=== PATIENT | female | born 1955 | race Two or more races ===

== ENCOUNTER 2022-08-20 10:33 | Inpatient (IN) | payer SELFPAY ==
[~2022-08-20] VITALS: Ht 157.5 cm; Wt 56.0 kg
[2022-08-20] MEDS ORDERED: CLINDAMYCIN 300MG IV 50 ML IV ONE (11:45)
[2022-08-20] MEDS ORDERED: PIPERACILLIN-TAZOB 3.375GM 100 ML IV ONE (11:45)
[2022-08-20 12:03] LABS: Basophils # (auto) 0.1 10 ^3/uL (0-0.2); Basophils % (auto) 0.6 % (0.0-2.0); Eosinophils # (auto) 0 10 ^3/uL (0-0.8); Eosinophils % (auto) 0.3 % (0.0-7.0); Hematocrit 38.7 % (36.0-46.0); Hemoglobin 13.7 g/dL (12.2-16.2); Lymphocytes # (auto) 1.8 10 ^3/uL (0.4-5.4); Lymphocytes % (auto) 14.5 % (10.0-50.0); Mean Corpuscular Hemoglobin 31.8 pg (28.0-32.0); Mean Corpuscular Hgb Conc. 35.5 g/dL (32.0-36.0); Mean Corpuscular Volume 89.5 fL (80.0-100.0); Monocytes # (auto) 0.9 10 ^3/uL (0-1.3); Monocytes % (auto) 6.9 % (0.0-12.0); Neutrophils # (auto) 9.6 10 ^3/uL (1.6-8.6); Neutrophils % (auto) 77.7 % (37.0-80.0); Red Blood Cells 4.32 10^6/uL (4.0-5.20); Red Cell Distribution Width 12.5 % (11.8-14.3); White Blood Cell 12.3 10^3/uL (4.4-10.8)
[2022-08-20 12:20] LABS: Calcium 8.8 mg/dL (8.5-10.1); INR 0.97 (0.9-1.15); Partial Thromboplastin Time 28.3 sec (24.6-33.4); Potassium 4.3 mmol/L (3.5-5.1)
[2022-08-20 12:23] LABS: BUN/Creatinine Ratio 26.9 (10.0-20.0); Bilirubin, Total 0.7 mg/dL (0.2-1.0)
[2022-08-20] MEDS ORDERED: DEXTROSE (50%) 50ML SYRG IV PRN (14:00)
[2022-08-20] MEDS ORDERED: PANTOPRAZOLE 40 MG/10 ML VIAL INJ IV ONE (14:00)
[2022-08-20] MEDS ORDERED: IBUP400T23 PO (14:00)
[2022-08-20] MEDS ORDERED: ACETAMINOPHEN 325 MG TAB PO PRN (14:00)
[2022-08-20] MEDS ORDERED: CLINDAMYCIN 600MG IV 50 ML IV SCH (14:00)
[2022-08-20] MEDS: SODIUM CHLORIDE 0.9% 1,000 ML IV SCH (14:04)
[2022-08-20] MEDS: CLINDAMYCIN 300MG IV 100 ML IV SCH ×2 (15:49→23:00)
[2022-08-20] MEDS: ACCU-CHEK COMFORT CURVE STRIP VI SCH ×2 (17:15→22:00)
[2022-08-20] MEDS: InsuLIN REG 1unit/0.01ml Soln (100units/ml) SC SCH ×2 (17:20→23:00)
[2022-08-20] MEDS: PIPERACILLIN-TAZOB 3.375GM 100 ML IV SCH (18:09)
[2022-08-20] MEDS: ASCORBIC ACID 500 MG TAB PO SCH (23:00)
[2022-08-21] MEDS: PIPERACILLIN-TAZOB 3.375GM 100 ML IV SCH ×5 (01:05→23:54)
[2022-08-21] MEDS: SODIUM CHLORIDE 0.9% 1,000 ML IV SCH ×2 (03:20→19:17)
[2022-08-21] MEDS: ACCU-CHEK COMFORT CURVE STRIP VI SCH ×4 (06:14→21:57)
[2022-08-21] MEDS: CLINDAMYCIN 300MG IV 100 ML IV SCH (06:25)
[2022-08-21] MEDS: InsuLIN REG 1unit/0.01ml Soln (100units/ml) SC SCH ×4 (06:53→22:03)
[2022-08-21 07:19] LABS: Albumin 2.5 g/dL (3.4-5.0); Potassium 3.5 mmol/L (3.5-5.1)
[2022-08-21 07:23] LABS: BUN/Creatinine Ratio 14.9 (10.0-20.0); Bilirubin, Total 0.6 mg/dL (0.2-1.0); Calcium 8.4 mg/dL (8.5-10.1); Total Protein 6.9 g/dL (6.4-8.2)
[2022-08-21 08:01] LABS: Basophils # (auto) 0.1 10 ^3/uL (0-0.2); Basophils % (auto) 1.1 % (0.0-2.0); Eosinophils # (auto) 0.1 10 ^3/uL (0-0.8); Eosinophils % (auto) 1.3 % (0.0-7.0); Hematocrit 38.4 % (36.0-46.0); Hemoglobin 13.3 g/dL (12.2-16.2); Lymphocytes # (auto) 1.9 10 ^3/uL (0.4-5.4); Mean Corpuscular Hemoglobin 31.5 pg (28.0-32.0); Mean Corpuscular Hgb Conc. 34.6 g/dL (32.0-36.0); Mean Corpuscular Volume 90.9 fL (80.0-100.0); Monocytes # (auto) 0.9 10 ^3/uL (0-1.3); Monocytes % (auto) 8.4 % (0.0-12.0); Neutrophils # (auto) 7.6 10 ^3/uL (1.6-8.6); Neutrophils % (auto) 71.2 % (37.0-80.0); Nucleated Red Blood Cells % 0.1 %; Red Blood Cells 4.23 10^6/uL (4.0-5.20); Red Cell Distribution Width 12.3 % (11.8-14.3); White Blood Cell 10.7 10^3/uL (4.4-10.8)
[2022-08-21] MEDS: ASCORBIC ACID 500 MG TAB PO SCH ×2 (10:53→22:00)
[2022-08-21] MEDS: ENOXAPARIN SOD 40 MG/0.4 ML SYRINGE SC SCH (10:53)
[2022-08-21] MEDS: PANTOPRAZOLE 40 MG/10 ML VIAL INJ IV SCH (10:53)
[2022-08-21] MEDS: MULTIPLE VITAMIN TAB PO SCH (10:53)
[2022-08-21] MEDS: ZINC SULFATE 220mg CAP or TAB PO SCH (10:54)
[2022-08-21 17:20] VITALS: BP 121/68
[2022-08-21 17:31] VITALS: BP 121/68
[2022-08-21] MEDS: CLINDAMYCIN HCL 150 MG CAP PO SCH ×2 (18:56→23:54)
[2022-08-21 20:00] VITALS: BP 121/68
[2022-08-21 21:44] VITALS: BP 121/64
[2022-08-22 05:04] VITALS: BP 146/62
[2022-08-22] MEDS: CLINDAMYCIN HCL 150 MG CAP PO SCH ×3 (05:35→18:23)
[2022-08-22] MEDS: PIPERACILLIN-TAZOB 3.375GM 100 ML IV SCH ×3 (05:35→18:23)
[2022-08-22] MEDS: SODIUM CHLORIDE 0.9% 1,000 ML IV SCH ×2 (05:36→21:51)
[2022-08-22] MEDS: InsuLIN REG 1unit/0.01ml Soln (100units/ml) SC SCH ×4 (06:40→21:57)
[2022-08-22] MEDS: ACCU-CHEK COMFORT CURVE STRIP VI SCH ×4 (06:42→21:51)
[2022-08-22 07:56] LABS: Urine Bacteria NONE SEEN /hpf (None Seen); Urine Blood Negative /uL (Negative); Urine Budding Yeast FEW /hpf (None Seen); Urine Specific Gravity 1.018 (1.001-1.035); Urine WBC 12 /hpf (0 - 5)
[2022-08-22 08:30] VITALS: BP 104/60
[2022-08-22] MEDS: PANTOPRAZOLE 40 MG/10 ML VIAL INJ IV SCH (09:53)
[2022-08-22] MEDS: ENOXAPARIN SOD 40 MG/0.4 ML SYRINGE SC SCH (09:54)
[2022-08-22] MEDS: MULTIPLE VITAMIN TAB PO SCH (09:54)
[2022-08-22] MEDS: ZINC SULFATE 220mg CAP or TAB PO SCH (09:54)
[2022-08-22] MEDS: ASCORBIC ACID 500 MG TAB PO SCH ×2 (09:55→21:48)
[2022-08-22 12:30] VITALS: BP 153/69
[2022-08-22 16:38] VITALS: BP 113/54
[2022-08-22 20:00] VITALS: BP 129/65
[2022-08-22 22:05] VITALS: BP 116/67
[2022-08-23] VITALS (7 sets, daily range): BP systolic 125–165; BP diastolic 61–84
[2022-08-23] MEDS: CLINDAMYCIN HCL 150 MG CAP PO SCH ×4 (00:58→17:48)
[2022-08-23] MEDS: PIPERACILLIN-TAZOB 3.375GM 100 ML IV SCH ×4 (00:59→17:47)
[2022-08-23] MEDS: ACCU-CHEK COMFORT CURVE STRIP VI SCH ×4 (06:25→21:04)
[2022-08-23] MEDS: InsuLIN REG 1unit/0.01ml Soln (100units/ml) SC SCH ×4 (06:29→21:06)
[2022-08-23] MEDS: ZINC SULFATE 220mg CAP or TAB PO SCH (10:30)
[2022-08-23] MEDS: SODIUM CHLORIDE 0.9% 1,000 ML IV SCH ×2 (10:31→21:07)
[2022-08-23] MEDS: ASCORBIC ACID 500 MG TAB PO SCH ×2 (10:31→21:07)
[2022-08-23] MEDS: ENOXAPARIN SOD 40 MG/0.4 ML SYRINGE SC SCH (10:31)
[2022-08-23] MEDS: PANTOPRAZOLE 40 MG/10 ML VIAL INJ IV SCH (10:31)
[2022-08-23] MEDS: MULTIPLE VITAMIN TAB PO SCH (10:31)
[2022-08-23] MEDS ORDERED: LIDOCAINE W/ EPINEPHRINE 2% INJ 20ML VIAL IJ ONE (11:15)
[2022-08-23] MEDS ORDERED: LIDOCAINE 1% HCL (LOCAL ANESTH.) INJ 20ML MDV ID ONE (11:45)
[2022-08-23] MEDS ORDERED: hydrALAZINE HCL 20 MG/ML VL IV PRN (11:45)
[2022-08-23] MEDS: DAKINS HALF STR 0.25% (NaHypochlorite) 473 ML TOPICAL SOL TOP SCH (12:52)
[2022-08-23] MEDS ORDERED: DEXTROSE (50%) 50ML SYRG IV PRN (13:00)
[2022-08-23] MEDS: MORPHINE SULFATE INJ 2 MG/ml SYRG IV PRN ×2 (17:47→21:56)
[2022-08-24] MEDS: PIPERACILLIN-TAZOB 3.375GM 100 ML IV SCH ×4 (00:44→18:00)
[2022-08-24] MEDS: CLINDAMYCIN HCL 150 MG CAP PO SCH ×4 (00:46→17:53)
[2022-08-24] MEDS: MORPHINE SULFATE INJ 2 MG/ml SYRG IV PRN ×3 (03:35→17:54)
[2022-08-24 05:00] VITALS: BP 118/61
[2022-08-24 05:19] LABS: Basophils # (auto) 0.1 10 ^3/uL (0-0.2); Basophils % (auto) 0.6 % (0.0-2.0); Eosinophils # (auto) 0.2 10 ^3/uL (0-0.8); Eosinophils % (auto) 1.8 % (0.0-7.0); Hemoglobin 12.1 g/dL (12.2-16.2); Lymphocytes # (auto) 2.1 10 ^3/uL (0.4-5.4); Lymphocytes % (auto) 18.1 % (10.0-50.0); Mean Corpuscular Hemoglobin 31.5 pg (28.0-32.0); Mean Corpuscular Hgb Conc. 34.6 g/dL (32.0-36.0); Monocytes # (auto) 1.3 10 ^3/uL (0-1.3); Neutrophils % (auto) 68.5 % (37.0-80.0); Nucleated Red Blood Cells % 0.1 %; Red Blood Cells 3.85 10^6/uL (4.0-5.20); Red Cell Distribution Width 12.5 % (11.8-14.3); White Blood Cell 11.6 10^3/uL (4.4-10.8)
[2022-08-24 05:40] LABS: Calcium 8.1 mg/dL (8.5-10.1); Potassium 4.2 mmol/L (3.5-5.1)
[2022-08-24 05:42] LABS: BUN/Creatinine Ratio 35.7 (10.0-20.0)
[2022-08-24] MEDS: ACCU-CHEK COMFORT CURVE STRIP VI SCH ×4 (06:48→22:12)
[2022-08-24] MEDS: InsuLIN REG 1unit/0.01ml Soln (100units/ml) SC SCH ×4 (06:49→22:17)
[2022-08-24 09:00] VITALS: BP 129/67
[2022-08-24] MEDS: INSULIN LANTUS (GLARGINE) 1 /0.01ml (100units/ml) SC SCH (09:45)
[2022-08-24] MEDS: PANTOPRAZOLE 40 MG/10 ML VIAL INJ IV SCH (10:10)
[2022-08-24] MEDS: ASCORBIC ACID 500 MG TAB PO SCH ×2 (10:10→22:18)
[2022-08-24] MEDS: ZINC SULFATE 220mg CAP or TAB PO SCH (10:10)
[2022-08-24] MEDS: MULTIPLE VITAMIN TAB PO SCH (10:10)
[2022-08-24] MEDS: DAKINS HALF STR 0.25% (NaHypochlorite) 473 ML TOPICAL SOL TOP SCH (10:11)
[2022-08-24] MEDS: ENOXAPARIN SOD 40 MG/0.4 ML SYRINGE SC SCH (10:11)
[2022-08-24 13:00] VITALS: BP 173/83
[2022-08-24] MEDS: SODIUM CHLORIDE 0.9% 1,000 ML IV SCH (13:13)
[2022-08-24 17:00] VITALS: BP 101/56
[2022-08-24 19:01] VITALS: BP 103/57
[2022-08-24 22:00] VITALS: BP 106/54
[2022-08-24] MEDS: HYDROcodone-ACET 5/325MG TAB PO PRN (22:22)
[2022-08-25] MEDS: PIPERACILLIN-TAZOB 3.375GM 100 ML IV SCH ×4 (00:01→17:42)
[2022-08-25] MEDS: CLINDAMYCIN HCL 150 MG CAP PO SCH ×4 (00:01→17:42)
[2022-08-25] MEDS: SODIUM CHLORIDE 0.9% 1,000 ML IV SCH ×2 (00:40→14:00)
[2022-08-25 05:00] VITALS: BP 148/73
[2022-08-25] MEDS: ACCU-CHEK COMFORT CURVE STRIP VI SCH ×4 (06:23→21:46)
[2022-08-25] MEDS: InsuLIN REG 1unit/0.01ml Soln (100units/ml) SC SCH ×4 (06:23→21:48)
[2022-08-25] MEDS: MORPHINE SULFATE INJ 2 MG/ml SYRG IV PRN ×3 (06:30→18:25)
[2022-08-25 08:30] VITALS: BP 116/63
[2022-08-25] MEDS: DAKINS HALF STR 0.25% (NaHypochlorite) 473 ML TOPICAL SOL TOP SCH (10:00)
[2022-08-25] MEDS: ASCORBIC ACID 500 MG TAB PO SCH ×2 (10:53→21:46)
[2022-08-25] MEDS: MULTIPLE VITAMIN TAB PO SCH (10:53)
[2022-08-25] MEDS: PANTOPRAZOLE 40 MG/10 ML VIAL INJ IV SCH (10:53)
[2022-08-25] MEDS: ZINC SULFATE 220mg CAP or TAB PO SCH (10:53)
[2022-08-25] MEDS: ENOXAPARIN SOD 40 MG/0.4 ML SYRINGE SC SCH (10:53)
[2022-08-25] MEDS: INSULIN LANTUS (GLARGINE) 1 /0.01ml (100units/ml) SC SCH (10:57)
[2022-08-25 12:30] VITALS: BP 114/67
[2022-08-25 16:51] VITALS: BP 92/48
[2022-08-25 22:00] VITALS: BP 109/59
[2022-08-26] VITALS (7 sets, daily range): BP systolic 106–134; BP diastolic 54–69
[2022-08-26] MEDS: PIPERACILLIN-TAZOB 3.375GM 100 ML IV SCH ×4 (00:07→17:55)
[2022-08-26] MEDS: CLINDAMYCIN HCL 150 MG CAP PO SCH ×4 (00:07→17:55)
[2022-08-26] MEDS: MORPHINE SULFATE INJ 2 MG/ml SYRG IV PRN ×3 (00:08→21:55)
[2022-08-26] MEDS: SODIUM CHLORIDE 0.9% 1,000 ML IV SCH (03:20)
[2022-08-26] MEDS: ACCU-CHEK COMFORT CURVE STRIP VI SCH ×4 (06:32→23:03)
[2022-08-26] MEDS: InsuLIN REG 1unit/0.01ml Soln (100units/ml) SC SCH ×4 (06:35→22:09)
[2022-08-26] MEDS: ZINC SULFATE 220mg CAP or TAB PO SCH (08:56)
[2022-08-26] MEDS: PANTOPRAZOLE 40 MG/10 ML VIAL INJ IV SCH (08:57)
[2022-08-26] MEDS: MULTIPLE VITAMIN TAB PO SCH (08:57)
[2022-08-26] MEDS: ENOXAPARIN SOD 40 MG/0.4 ML SYRINGE SC SCH (08:57)
[2022-08-26] MEDS: ASCORBIC ACID 500 MG TAB PO SCH ×2 (08:57→21:53)
[2022-08-26] MEDS: DAKINS HALF STR 0.25% (NaHypochlorite) 473 ML TOPICAL SOL TOP SCH (08:58)
[2022-08-26] MEDS: INSULIN LANTUS (GLARGINE) 1 /0.01ml (100units/ml) SC SCH (09:07)
[2022-08-26] MEDS ORDERED: INSULIN LANTUS (GLARGINE) 1 /0.01ml (100units/ml) SC ONE (11:45)
[2022-08-26] MEDS: Juven Fruit Punch Powder PACKET 28.8gm PO SCH (17:59)
[2022-08-27] MEDS: CLINDAMYCIN HCL 150 MG CAP PO SCH ×2 (00:59→06:22)
[2022-08-27] MEDS: PIPERACILLIN-TAZOB 3.375GM 100 ML IV SCH ×4 (02:07→12:23)
[2022-08-27 05:00] VITALS: BP 136/71
[2022-08-27 06:14] LABS: Hemoglobin 12.1 g/dL (12.2-16.2); Mean Corpuscular Hemoglobin 31.4 pg (28.0-32.0); Red Cell Distribution Width 12.4 % (11.8-14.3)
[2022-08-27 06:18] LABS: Hematocrit 35.1 % (36.0-46.0); Mean Corpuscular Hgb Conc. 34.6 g/dL (32.0-36.0); Mean Corpuscular Volume 90.9 fL (80.0-100.0); Red Blood Cells 3.86 10^6/uL (4.0-5.20); White Blood Cell 9.5 10^3/uL (4.4-10.8)
[2022-08-27 06:27] LABS: Basophils % (manual) 0 (0.0-2.0); Blast Cells 0; Metamyelocytes % 0; Myelocytes % 0; Promyelocytes % 0
[2022-08-27 06:34] LABS: BUN/Creatinine Ratio 23.7 (10.0-20.0); Calcium 8.8 mg/dL (8.5-10.1); Potassium 3.9 mmol/L (3.5-5.1)
[2022-08-27] MEDS: ACCU-CHEK COMFORT CURVE STRIP VI SCH ×3 (07:02→17:04)
[2022-08-27] MEDS: InsuLIN REG 1unit/0.01ml Soln (100units/ml) SC SCH ×3 (07:03→17:00)
[2022-08-27 07:28] LABS: Band Neutrophils % (manual) 2; Eosinophils % (manual) 2 (0-7); Lymphocytes % (manual) 30 (10.0-50.0); Monocytes % (manual) 2 (0-12); Reactive Lymphocytes 3
[2022-08-27 08:00] VITALS: BP 124/68
[2022-08-27] MEDS: Juven Fruit Punch Powder PACKET 28.8gm PO SCH (08:00)
[2022-08-27] MEDS: MULTIPLE VITAMIN TAB PO SCH (08:51)
[2022-08-27] MEDS: PANTOPRAZOLE 40 MG/10 ML VIAL INJ IV SCH (08:51)
[2022-08-27] MEDS: ENOXAPARIN SOD 40 MG/0.4 ML SYRINGE SC SCH (08:51)
[2022-08-27] MEDS: ASCORBIC ACID 500 MG TAB PO SCH (08:51)
[2022-08-27] MEDS: ZINC SULFATE 220mg CAP or TAB PO SCH (08:52)
[2022-08-27 09:00] VITALS: BP 121/68
[2022-08-27] MEDS: DAKINS HALF STR 0.25% (NaHypochlorite) 473 ML TOPICAL SOL TOP SCH (09:06)
[2022-08-27] MEDS ORDERED: INSULIN LANTUS (GLARGINE) 1 /0.01ml (100units/ml) SC SCH (10:00)
[2022-08-27] MEDS: MORPHINE SULFATE INJ 2 MG/ml SYRG IV PRN (10:51)
[2022-08-27 13:00] VITALS: BP 135/73
[2022-08-27] MEDS ORDERED: GAUZMIS54 XX (14:06)
[2022-08-27] MEDS ORDERED: CEPH-510 PO (14:06)
[2022-08-27] MEDS ORDERED: HYDR-4902 PO (14:06)
[2022-08-27] MEDS ORDERED: GAUZMIS XX (14:06)
[2022-08-27] MEDS: HYDROcodone-ACET 5/325MG TAB PO PRN (16:32)
[2022-08-27 17:15] VITALS: BP 120/55
== END 2022-08-27 16:30 | disposition home or self-care (01) | DRG 872 ==
LOC: ER 10:33 → OVERFLOW 13:58 → EAST 08-21 17:06
PROVIDERS: ADMIT Nurse Practitioner Family; ATTEND Nurse Practitioner Acute Care
DX: A41.9 Sepsis, unspecified organism (principal); L03.116 Cellulitis of left lower limb; E46 Unspecified protein-calorie malnutrition; L02.612 Cutaneous abscess of left foot; E11.621 Type 2 diabetes mellitus with foot ulcer; L97.509 Non-pressure chronic ulcer of other part of unspecified foot with unspecified severity; E11.40 Type 2 diabetes mellitus with diabetic neuropathy, unspecified; E11.65 Type 2 diabetes mellitus with hyperglycemia; Z20.822 Contact with and (suspected) exposure to COVID-19; Z79.84 Long term (current) use of oral hypoglycemic drugs; Z68.21 Body mass index [BMI] 21.0-21.9, adult
CPT/HCPCS: 36415; 71045; 73700; 80048; 80053; 81001; 82962; 83036; 83605; 84484; 85007; 85025; 85027; 85610; 85730; 87040; 87205; 87426; 93971; 96365; 96367; 96375; C9113; G0378; J1815; J2543; J3490